=== PATIENT | male | born 1975 | race Two or more races ===

== ENCOUNTER 2017-10-12 00:25 | Inpatient (IN) | payer BC ==
[~2017-10-12] VITALS: Ht 188 cm; Wt 87.5 kg
[2017-10-12 00:21] VITALS: BP 125/80
[~2017-10-12 00:25] MED LIST: AMBIEN10 MG ORAL; IMODIUM2 MG ORAL; NORCO 5-325 TA1 EACH ORAL
[2017-10-12] MEDS ORDERED: HYDROmorphone 1mg/ml Carpuject IVP ONE (00:45)
[2017-10-12] MEDS ORDERED: cefTRIAXone 1 GM in NS 55 ML IVPB ONE (00:45)
[2017-10-12] MEDS ORDERED: DiphenhydrAMINE 50mg/ml Inj IVP ONE (00:45)
[2017-10-12] MEDS ORDERED: Vancomycin 1.5gm/D5W 250ml 250 ML IVPB ONE (00:45)
[2017-10-12] MEDS ORDERED: NS 1000ml 2,600 ML IVLG ONE (00:45)
--- NOTE | 2017-10-12 00:57 | Emergency Room Report ---
History of Present Illness General Chief Complaint: Skin Rash/Abscess Source: Patient Present Illness HPI Patient presents with complaints of redness and swelling to the left upper axilla He reports that 3 days ago he felt a noticed a small red area over the course of the 3 days the area has increased significantly pain had worsened 10 out of 10 pain over the past night he felt the area draining And after looking at the area there was pus and blood noted Patient denies any headache or visual changes he had a questionable fever yesterday Patient has not started any oral antibiotics as of yet Allergies: Coded Allergies: No Known Allergies (Unverified , 02/07/14) Patient History Past Medical History: see triage record Pertinent Family History: none Reviewed Nursing Documentation: PMH: Agreed, PSxH: Agreed Nursing Documentation-PMH Past Medical History: No Stated History Review of Systems All Other Systems: negative except mentioned in HPI Physical Exam Vital Signs Date Time Temp Pulse Resp B/P (MAP) Pulse Ox O2 Delivery O2 Flow Rate FiO2 10/12/17 00:14 98.8 84 15 125/80 100 Room Air Sp02 EP Interpretation: reviewed, normal General Appearance: mild distress - appears uncomfortable Head: normocephalic, atraumatic Eyes: bilateral eye PERRL, bilateral eye EOMI ENT: normal pharynx, no angioedema Neck: full range of motion, supple Respiratory: lungs clear Cardiovascular #1: regular rate, rhythm, no edema Gastrointestinal: non tender, soft Musculoskeletal: normal inspection Neurologic: alert, oriented x3, responsive, custom shoemaker III-XII nml as tested Skin: other - Area in the left axilla on the lower aspect, palpable fluctuant region with a central opening and drainage, erythema approximately 6 x 4 cm Lymphatic: no adenopathy Medical Decision Making Diagnostic Impression: Primary Impression: Abscess Additional Impression: Cellulitis ER Course Given the patient's history and presentation lack of any obvious ingrown hair or other source patient had imaging study also obtained there is some evidence of edema and soft tissue changes no obvious large abscess was identified Patient initiated on IV antibiotics and fluids Pain medication At this time patient will require admission Specialty consultation will be made and patient stable for continued care Labs Test 10/12/17 01:00 10/12/17 02:05 White Blood Count 9.5 K/UL (4.8-10.8) Red Blood Count 4.17 M/UL (4.70-6.10) Hemoglobin 13.6 G/DL (14.2-18.0) Hematocrit 39.2 % (42.0-52.0) Mean Corpuscular Volume 94 FL (80-99) Mean Corpuscular Hemoglobin 32.5 PG (27.0-31.0) Mean Corpuscular Hemoglobin Concent 34.6 G/DL (32.0-36.0) Red Cell Distribution Width 12.7 % (11.6-14.8) Platelet Count 222 K/UL (150-450) Mean Platelet Volume 8.4 FL (6.5-10.1) Neutrophils (%) (Auto) 64.0 % (45.0-75.0) Lymphocytes (%) (Auto) 21.6 % (20.0-45.0) Monocytes (%) (Auto) 10.1 % (1.0-10.0) Eosinophils (%) (Auto) 3.6 % (0.0-3.0) Basophils (%) (Auto) 0.8 % (0.0-2.0) Sodium Level 140 MMOL/L (136-145) Potassium Level 5.0 MMOL/L (3.5-5.1) Chloride Level 106 MMOL/L (98-107) Carbon Dioxide Level 27 MMOL/L (21-32) Anion Gap 7 mmol/L (5-15) Blood Urea Nitrogen 9 mg/dL (7-18) Creatinine 0.9 MG/DL (0.55-1.30) Estimat Glomerular Filtration Rate > 60 mL/min (>60) Glucose Level 126 MG/DL (74-106) Lactic Acid Level 2.10 mmol/L (0.66-2.22) 1.20 mmol/L (0.66-2.22) Calcium Level 8.7 MG/DL (8.5-10.1) Total Bilirubin 0.4 MG/DL (0.2-1.0) Aspartate Amino Transf (AST/SGOT) 90 U/L (15-37) Alanine Aminotransferase (ALT/SGPT) 45 U/L (12-78) Alkaline Phosphatase 91 U/L (46-116) Total Creatine Kinase 139 U/L (26-308) Creatine Kinase MB 1.6 NG/ML (0.0-3.6) Creatine Kinase MB Relative Index 1.1 Total Protein 7.3 G/DL (6.4-8.2) Albumin 3.2 G/DL (3.4-5.0) Globulin 4.1 g/dL Albumin/Globulin Ratio 0.8 (1.0-2.7) CT/MRI/US Diagnostic Results CT/MRI/US Diagnostic Results : Impression CT chest: No obvious PE, edema and inflammatory changes left upper chest, no obvious abscess Last Vital Signs Date Time Temp Pulse Resp B/P (MAP) Pulse Ox O2 Delivery O2 Flow Rate FiO2 10/12/17 00:21 98.8 15 125/80 100 Room Air 10/12/17 00:14 84 Status: improved Disposition: ADMITTED INPATIENT Condition: Serious MALKA GAMBINO D.O. Oct 12, 2017 00:57
[2017-10-12 01:18] LABS: BASOPHILS % (AUTO) 0.8 % (0.0-2.0); EOSINOPHILS % (AUTO) 3.6 % (0.0-3.0); LYMPHOCYTES % (AUTO) 21.6 % (20.0-45.0); MEAN CORPUSCULAR HEMOGLOBIN 32.5 PG (27.0-31.0); MEAN CORPUSCULAR HGB CONC 34.6 G/DL (32.0-36.0); MEAN CORPUSCULAR VOLUME 94 FL (80-99); MEAN PLATELET VOLUME 8.4 FL (6.5-10.1); MONOCYTES % (AUTO) 10.1 % (1.0-10.0); PLATELET COUNT 222 K/UL (150-450); RED BLOOD COUNT 4.17 M/UL (4.70-6.10); RED CELL DISTRIBUTION WIDTH 12.7 % (11.6-14.8); WHITE BLOOD COUNT 9.5 K/UL (4.8-10.8)
[2017-10-12 01:43] LABS: ANION GAP 7 mmol/L (5-15); CALCIUM 8.7 MG/DL (8.5-10.1); CARBON DIOXIDE 27 MMOL/L (21-32); CHLORIDE 106 MMOL/L (98-107); CREATININE 0.9 MG/DL (0.55-1.30); GLOMERULAR FILTRATION RATE > 60 mL/min (>60); SODIUM 140 MMOL/L (136-145)
[2017-10-12 01:58] LABS: ALANINE AMINOTRANSFERASE 45 U/L (12-78); ALBUMIN/GLOBULIN RATIO 0.8 (1.0-2.7); ASPARTATE AMINO TRANSFERASE 90 U/L (15-37); CKMB 1.6 NG/ML (0.0-3.6); TOTAL PROTEIN 7.3 G/DL (6.4-8.2)
[2017-10-12 02:00] LABS: REFLEX LACTIC ACID YES OR NO YES
[2017-10-12 02:02] VITALS: BP 114/93
[2017-10-12] MEDS ORDERED: HYDROmorphone 2 MG, DiphenhydrAMINE 25 MG in NS 55 ML IV ONE (02:45)
[2017-10-12] MEDS ORDERED: Ketorolac 30mg Inj IV ONE (03:45)
[2017-10-12] MEDS ORDERED: Bacitracin Oint UD TOPIC ONE (03:45)
[2017-10-12 04:07] VITALS: BP 125/80
[2017-10-12 04:30] VITALS: BP 124/74
[2017-10-12] MEDS ORDERED: OMEPRAZOLE40 M1 ORAL (05:32)
[2017-10-12] MEDS ORDERED: Morphine Sulfate 2mg/ml Inj IVP ONE ×2 (06:30→15:30)
[2017-10-12] MEDS ORDERED: Morphine Sulfate 2mg/ml Inj IVP PRN (07:00)
[2017-10-12] MEDS ORDERED: Nitroglycerin Subl 0.4mg tab SL PRN (07:00)
[2017-10-12] MEDS ORDERED: Miralax 17gm pkt ORAL PRN (07:00)
[2017-10-12] MEDS ORDERED: Albuterol/Ipratropium 3ml neb HHN PRN (07:00)
[2017-10-12 08:00] VITALS: BP 122/69
[2017-10-12] MEDS ORDERED: Heparin 5000 units/ml inj SUBQ SCH (09:00)
[2017-10-12] MEDS ORDERED: Cefepime HCl 2 GM in D5W 55 ML IV SCH (09:00)
--- NOTE | 2017-10-12 10:50 | Diagnostic Imaging Report ---
ndication: Chest pain Technique: IV administration nonionic contrast. Spiral acquisitions obtained from the lung bases to the lung apices. Multiplanar and 3-D reconstructions were generated. Total dose length product 1179 mGycm. CTDIvol(s) 12, 25, 30 mGy. Dose reduction achieved using automated exposure control Comparison: None Findings: There is some image degradation due to motion artifact. Pulmonary arteries are well opacified centrally but less well opacified peripherally; small distal emboli cannot be confidently excluded. No central pulmonary embolus demonstrated. No evidence of thoracic aortic aneurysm or dissection. No pulmonary arterial dilatation. Normal heart size. No right ventricular dilatation. The lungs demonstrate minimal posterior dependent atelectatic changes. The lungs are otherwise clear. No effusions. There is slight infiltration of the left chest wall subcutaneous fat as well as thickening of the skin. No fluid collections to suggest abscess are evident. There is mild asymmetric prominence to the left axillary nodes, which demonstrate preserved architecture No pericardial effusion. No mediastinal or hilar mass or adenopathy. Unremarkable thyroid. The bones are unremarkable. Included upper abdominal anatomy demonstrates mild hepatic enlargement. Impression: Somewhat limited exam. Grossly negative for acute pulmonary embolus or other acute intrathoracic pathology. Left chest wall skin thickening and subcutaneous edema, as described. Could indicate cellulitis or contusion. Correlate with clinical findings. No findings to suggest abscess Mildly prominent left axillary nodes, likely reactive Possible mild hepatomegaly The CT scanner at [facility] is accredited by the [employer] and the scans are performed using protocols designed to limit radiation exposure to as low as reasonably achievable to attain images of sufficient resolution adequate for diagnostic evaluation.
--- NOTE | 2017-10-12 10:50 | Consultation ---
History of Present Illness General Date patient seen: Oct 12, 2017 Chief Complaint: Skin Rash/Abscess Present Illness HPI 42 year old otherwise healthy male presented to ED complaining of worsening left axilla pain for 3-4 days. As per patient, he was in his normal state of health until 3-4 days ago when he first noted a small "pimple" on his left axilla. Initially did not think much of it but over the subsequent days began to enlarge and cause more discomfort. Yesterday he began to note 10/10 pain and came to ED for evaluated. Noted small lump enlarge to the size of a "golfball" prior to coming to the ED. He also noted some spontaneous drainage of pus and blood over the past few hours. since admission has began to feel better with pain medication and abx. denies fever or chills. no nausea or emesis. no similar events prior. In ED had CT scan which demonstrated superficial cellulitis and enlarged lymph nodes in the area. surgery called to evaluate. Allergies: Coded Allergies: No Known Allergies (Unverified , 02/07/14) Medication History Scheduled Omeprazole (Omeprazole), 40 MG ORAL PRN, (Reported) Patient History History Provided By: Patient Healthcare decision maker Resuscitation status Full Code Advanced Directive on File Past Medical/Surgical History Past Medical/Surgical History: (1) Abscess Review of Systems Constitutional: Denies: no symptoms, see HPI, chills, sweats, fever, malaise, weakness, other Eye: Denies: no symptoms, see HPI, eye pain, blurred vision, tearing, double vision, nose pain, nose congestion, acuity changes, discharge, other ENT: Denies: no symptoms, see HPI, ear pain, ear discharge, nose pain, nose congestion, throat pain, throat swelling, mouth pain, hearing loss, nasal discharge, other Respiratory: Denies: no symptoms, see HPI, cough, orthopnea, shortness of breath, stridor, wheezing, MOCTEZUMA, sputum, other Cardiovascular: Denies: no symptoms, see HPI, chest pain, edema, palpitations, syncope, PND, other Gastrointestinal: Denies: no symptoms, see HPI, abdominal pain, constipation, diarrhea, nausea, vomiting, melena, hematemesis, other Genitourinary: Denies: no symptoms, see HPI, discharge, dysuria, frequency, hematuria, pain, retention, incontinence, urgency, vag bleed/dc, other Musculoskeletal: Denies: no symptoms, see HPI, back pain, gout, joint pain, joint swelling, muscle pain, muscle stiffness, other Skin: Denies: no symptoms, see HPI, rash, change in color, change in hair/nails , dryness, lesions, other Psychiatric: Denies: no symptoms, see HPI, prior hx, anxiety, depressed feelings, emotional problems, SI, HI, hallucinations, other Neurological: Denies: no symptoms, see HPI, headache, numbness, paresthesia, seizure, tingling, tremors, focal weakness, syncope, dizziness, other Endocrine: Denies: no symptoms, see HPI, excessive sweating, flushing, intolerance to temperature, increased thirst, increased urine, unexplained weight loss, other Hematologic/Lymphatic: Denies: no symptoms, see HPI, anemia, blood clots, easy bleeding, easy bruising, swollen glands, diathesis, other All Other Systems: negative except mentioned in HPI Physical Exam General Appearance: WD/WN, no apparent distress, alert Lines, tubes and drains: peripheral HEENT: PERRL Neck: normal inspection Respiratory/Chest: normal breath sounds, no respiratory distress, no accessory muscle use Cardiovascular/Chest: normal peripheral pulses, normal rate, regular rhythm Abdomen: normal bowel sounds, non tender, soft, no organomegaly, no mass Skin Exam: normal pigmentation, warm/dry Neurologic: medical charge entry specialist II-XII grossly normal, alert, oriented x 3 Physical Exam Narrative Left axilla with 8cm x 6cm area of cellulitis with induration and central fluctuance. 2mm open area with spontaneous drainage of pus at the central area of fluctuance. very tender on palpation cannot palpate lymph nodes Last 24 Hour Vital Signs Date Time Temp Pulse Resp B/P (MAP) Pulse Ox O2 Delivery O2 Flow Rate FiO2 10/12/17 08:00 97.0 81 18 122/69 98 Room Air 10/12/17 04:35 98.8 79 12 125/80 100 Room Air 10/12/17 04:30 97.3 73 20 124/74 99 Room Air 10/12/17 04:07 79 12 125/80 100 Room Air 10/12/17 03:34 98.8 10/12/17 02:08 98.8 10/12/17 02:02 80 17 114/93 99 Room Air 10/12/17 00:21 98.8 15 125/80 100 Room Air 10/12/17 00:14 98.8 84 15 125/80 100 Room Air Laboratory Tests Test 10/12/17 01:00 10/12/17 02:05 White Blood Count 9.5 K/UL (4.8-10.8) Red Blood Count 4.17 M/UL (4.70-6.10) L Hemoglobin 13.6 G/DL (14.2-18.0) L Hematocrit 39.2 % (42.0-52.0) L Mean Corpuscular Volume 94 FL (80-99) Mean Corpuscular Hemoglobin 32.5 PG (27.0-31.0) H Mean Corpuscular Hemoglobin Concent 34.6 G/DL (32.0-36.0) Red Cell Distribution Width 12.7 % (11.6-14.8) Platelet Count 222 K/UL (150-450) Mean Platelet Volume 8.4 FL (6.5-10.1) Neutrophils (%) (Auto) 64.0 % (45.0-75.0) Lymphocytes (%) (Auto) 21.6 % (20.0-45.0) Monocytes (%) (Auto) 10.1 % (1.0-10.0) H Eosinophils (%) (Auto) 3.6 % (0.0-3.0) H Basophils (%) (Auto) 0.8 % (0.0-2.0) Sodium Level 140 MMOL/L (136-145) Potassium Level 5.0 MMOL/L (3.5-5.1) Chloride Level 106 MMOL/L (98-107) Carbon Dioxide Level 27 MMOL/L (21-32) Anion Gap 7 mmol/L (5-15) Blood Urea Nitrogen 9 mg/dL (7-18) Creatinine 0.9 MG/DL (0.55-1.30) Estimat Glomerular Filtration Rate > 60 mL/min (>60) Glucose Level 126 MG/DL (74-106) H Lactic Acid Level 2.10 mmol/L (0.66-2.22) 1.20 mmol/L (0.66-2.22) Calcium Level 8.7 MG/DL (8.5-10.1) Total Bilirubin 0.4 MG/DL (0.2-1.0) Aspartate Amino Transf (AST/SGOT) 90 U/L (15-37) H Alanine Aminotransferase (ALT/SGPT) 45 U/L (12-78) Alkaline Phosphatase 91 U/L (46-116) Total Creatine Kinase 139 U/L (26-308) Creatine Kinase MB 1.6 NG/ML (0.0-3.6) Creatine Kinase MB Relative Index 1.1 Total Protein 7.3 G/DL (6.4-8.2) Albumin 3.2 G/DL (3.4-5.0) L Globulin 4.1 g/dL Albumin/Globulin Ratio 0.8 (1.0-2.7) L Height (Feet): 6 Height (Inches): 2.00 Weight (Pounds): 193 Medications Current Medications Medications (Trade) Dose Ordered Sig/[place] Route PRN Reason Start Time Stop Time Status Last Admin Dose Admin Acetaminophen (Tylenol) 650 mg Q4H PRN ORAL fever 10/12/17 07:00 11/11/17 06:59 Albuterol/ Ipratropium (Albuterol/ Ipratropium) 3 ml Q4H PRN HHN Shortness of Breath 10/12/17 07:00 10/17/17 06:59 Cefepime HCl 2 gm/ Dextrose 55 ml @ 110 mls/hr EVERY 12 HOURS IV 10/12/17 09:00 10/19/17 08:59 10/12/17 10:04 Dextrose (Dextrose 50%) STAT PRN IV Hypoglycemia 10/12/17 07:00 11/11/17 06:59 Heparin Sodium (Porcine) (Heparin 5000 units/ml) 5,000 units EVERY 12 HOURS SUBQ 10/12/17 09:00 11/11/17 08:59 10/12/17 10:04 Morphine Sulfate (Morphine Sulfate) 2 mg Q4H PRN IVP Moderate Pain (Pain Scale 4-6) 10/12/17 07:00 10/19/17 06:59 Nitroglycerin (Ntg) 0.4 mg Q5M PRN SL Prn Chest Pain 10/12/17 07:00 11/11/17 06:59 Ondansetron HCl (Zofran) 4 mg Q6H PRN IVP Nausea & Vomiting 10/12/17 07:00 11/11/17 06:59 Polyethylene Glycol (Miralax) 17 gm DAILYPRN PRN ORAL Constipation 10/12/17 07:00 11/11/17 06:59 Temazepam (Restoril) 15 mg HSPRN PRN ORAL Insomnia 10/12/17 07:00 10/19/17 06:59 Vancomycin HCl (Vanco rx to dose) 1 ea DAILY PRN MISC per RX Protocol 10/12/17 07:30 11/11/17 07:29 Vancomycin HCl/ Dextrose 250 ml @ 125 mls/hr Q12HR@0200,1400 IVPB 10/12/17 14:00 10/17/17 13:59 Assessment/Plan Problem List: (1) Abscess Assessment & Plan: 42M moderate sized left axillary abscess. has recently began to have spontaneous drainage. still with significant induration and tenderness. recommend Incision and drainage with washout at bedside. will follow thank you for this consultation. ICD Codes: L02.91 - Cutaneous abscess, unspecified SNOMED: [id number] Status: stable Tre Jones Oct 12, 2017 10:50
--- NOTE | 2017-10-12 11:24 | Consultation ---
History of Present Illness General Date patient seen: Oct 12, 2017 - 11:23a Chief Complaint: Skin Rash/Abscess Reason for Consultation: L axilla abscess/cellulitis Present Illness HPI 42 y/o M with no prior medical hx presents to ED on 10/12 with c/o redness and swelling of L upper axilla. 3 days [employer] noticed a small red area/"pimple' and within 3 days has significantly enlarged(now "gulf ball size"), increasing pain (10/10) and noticed some pus and blood coming out. Also had subjective fevers. Denies n/v, prior similar events, cough, SOB. On ED had CT scan which showed superficial cellultis and enlarged lymph nodes. Allergies: Coded Allergies: No Known Allergies (Unverified , 02/07/14) Medication History Scheduled Omeprazole (Omeprazole), 40 MG ORAL PRN, (Reported) Patient History Healthcare decision maker Resuscitation status Full Code Advanced Directive on File Patient History Narrative Pmhx: negative SH: non contributory Fhx: non contributory Review of Systems All Other Systems: negative except mentioned in HPI Physical Exam Physical Exam Narrative General Appearance: sitting in bed comfortably, not in acute distress HEENT: normocephalic, atraumatic, bilateral eye PERRL, bilateral eye EOMI, normal pharynx Neck: full range of motion, supple Respiratory: lungs clear Cardiovascular regular rate, rhythm, no edema Gastrointestinal: non tender, soft Musculoskeletal: normal inspection Neurologic: alert, oriented x3, responsive, program strategist III-XII nml as tested Skin: other - Area in the left axilla s/p I+D with packing and surrrounding induration ; minimal erythema Last 24 Hour Vital Signs Date Time Temp Pulse Resp B/P (MAP) Pulse Ox O2 Delivery O2 Flow Rate FiO2 10/12/17 08:00 97.0 81 18 122/69 98 Room Air 10/12/17 04:35 98.8 79 12 125/80 100 Room Air 10/12/17 04:30 97.3 73 20 124/74 99 Room Air 10/12/17 04:07 79 12 125/80 100 Room Air 10/12/17 03:34 98.8 10/12/17 02:08 98.8 10/12/17 02:02 80 17 114/93 99 Room Air 10/12/17 00:21 98.8 15 125/80 100 Room Air 10/12/17 00:14 98.8 84 15 125/80 100 Room Air Laboratory Tests Test 10/12/17 01:00 10/12/17 02:05 White Blood Count 9.5 K/UL (4.8-10.8) Red Blood Count 4.17 M/UL (4.70-6.10) L Hemoglobin 13.6 G/DL (14.2-18.0) L Hematocrit 39.2 % (42.0-52.0) L Mean Corpuscular Volume 94 FL (80-99) Mean Corpuscular Hemoglobin 32.5 PG (27.0-31.0) H Mean Corpuscular Hemoglobin Concent 34.6 G/DL (32.0-36.0) Red Cell Distribution Width 12.7 % (11.6-14.8) Platelet Count 222 K/UL (150-450) Mean Platelet Volume 8.4 FL (6.5-10.1) Neutrophils (%) (Auto) 64.0 % (45.0-75.0) Lymphocytes (%) (Auto) 21.6 % (20.0-45.0) Monocytes (%) (Auto) 10.1 % (1.0-10.0) H Eosinophils (%) (Auto) 3.6 % (0.0-3.0) H Basophils (%) (Auto) 0.8 % (0.0-2.0) Sodium Level 140 MMOL/L (136-145) Potassium Level 5.0 MMOL/L (3.5-5.1) Chloride Level 106 MMOL/L (98-107) Carbon Dioxide Level 27 MMOL/L (21-32) Anion Gap 7 mmol/L (5-15) Blood Urea Nitrogen 9 mg/dL (7-18) Creatinine 0.9 MG/DL (0.55-1.30) Estimat Glomerular Filtration Rate > 60 mL/min (>60) Glucose Level 126 MG/DL (74-106) H Lactic Acid Level 2.10 mmol/L (0.66-2.22) 1.20 mmol/L (0.66-2.22) Calcium Level 8.7 MG/DL (8.5-10.1) Total Bilirubin 0.4 MG/DL (0.2-1.0) Aspartate Amino Transf (AST/SGOT) 90 U/L (15-37) H Alanine Aminotransferase (ALT/SGPT) 45 U/L (12-78) Alkaline Phosphatase 91 U/L (46-116) Total Creatine Kinase 139 U/L (26-308) Creatine Kinase MB 1.6 NG/ML (0.0-3.6) Creatine Kinase MB Relative Index 1.1 Total Protein 7.3 G/DL (6.4-8.2) Albumin 3.2 G/DL (3.4-5.0) L Globulin 4.1 g/dL Albumin/Globulin Ratio 0.8 (1.0-2.7) L Height (Feet): 6 Height (Inches): 2.00 Weight (Pounds): 193 Medications Current Medications Medications (Trade) Dose Ordered Sig/[place] Route PRN Reason Start Time Stop Time Status Last Admin Dose Admin Acetaminophen (Tylenol) 650 mg Q4H PRN ORAL fever 10/12/17 07:00 11/11/17 06:59 Albuterol/ Ipratropium (Albuterol/ Ipratropium) 3 ml Q4H PRN HHN Shortness of Breath 10/12/17 07:00 10/17/17 06:59 Cefepime HCl 2 gm/ Dextrose 55 ml @ 110 mls/hr EVERY 12 HOURS IV 10/12/17 09:00 10/19/17 08:59 10/12/17 10:04 Dextrose (Dextrose 50%) STAT PRN IV Hypoglycemia 10/12/17 07:00 11/11/17 06:59 Heparin Sodium (Porcine) (Heparin 5000 units/ml) 5,000 units EVERY 12 HOURS SUBQ 10/12/17 09:00 11/11/17 08:59 10/12/17 10:04 Lidocaine/ Epinephrine (Xylocaine 1%/ Epi MPF 30ml) 30 ml ONCE ONCE INJ 10/12/17 12:00 10/12/17 12:01 Morphine Sulfate (Morphine Sulfate) 2 mg Q4H PRN IVP Moderate Pain (Pain Scale 4-6) 10/12/17 07:00 10/19/17 06:59 Nitroglycerin (Ntg) 0.4 mg Q5M PRN SL Prn Chest Pain 10/12/17 07:00 11/11/17 06:59 Ondansetron HCl (Zofran) 4 mg Q6H PRN IVP Nausea & Vomiting 10/12/17 07:00 11/11/17 06:59 Polyethylene Glycol (Miralax) 17 gm DAILYPRN PRN ORAL Constipation 10/12/17 07:00 11/11/17 06:59 Temazepam (Restoril) 15 mg HSPRN PRN ORAL Insomnia 10/12/17 07:00 10/19/17 06:59 Vancomycin HCl (Vanco rx to dose) 1 ea DAILY PRN MISC per RX Protocol 10/12/17 07:30 11/11/17 07:29 Vancomycin HCl/ Dextrose 250 ml @ 125 mls/hr Q12HR@0200,1400 IVPB 10/12/17 14:00 10/17/17 13:59 Assessment/Plan Assessment/Plan Abx: IV Vancomycin 10/12- IV Cefepime 10/12- Ceftriaxone x1 10/12 Assesment: L axilla abscess- r/o MRSA -s/p bedside I+D 10/12; surgical findings: small 2mm opening from spontaneous drainage noted and to be extended for I&D. wound cavity evacuated and inspected. noted to be 2cm deep and 3cm in diameter. cavity irrigated with sterile normal saline until clean of all debris and pus. ;wound cx sent Bcx p CT Thorax: Somewhat limited exam. Grossly negative for acute pulmonary embolus or other acute intrathoracic pathology. Left chest wall skin thickening and subcutaneous edema, as described. Could indicate cellulitis or contusion. Correlate with clinical findings. No findings to suggest abscess Mildly prominent left axillary nodes, likely reactive Possible mild hepatomegaly afebrile, no leukocytosis Plan: -On IV Vancomycin; ok to discharge home on PO keflex 500mg qid, Bactrim DS 2 tab bid for 7 days -D/c Cefepime -f/u wound cx from debridement -f/u cx -Monitor CBC/BMP, temperatures Thank you for this consultation. Will continue to follow along with you. Discussed with RN, Dr Stewart and Solange Pacheco M.D. Oct 12, 2017 11:24
[2017-10-12 12:00] VITALS: BP 121/77
[2017-10-12] MEDS ORDERED: Lidocaine 1% 10mg/ml/Epi 0.005mg/ml 30ml vial INJ ONE (12:00)
--- NOTE | 2017-10-12 12:08 | Operative Note - PDOC ---
Operative Note Operative Note Date of Operation/Procedure: Oct 12, 2017 Pre-op Diagnosis: Left axilla abscess Procedure: Incision and Drainage of left axilla abscess Post-op Diagnosis: same as pre-op Surgeon: Karen WOODRUFF Anesthesia: local Specimen: yes - cultures sent for micro Complications: none Condition: stable Estimated Blood Loss: minimal Drains: none Implant(s) used?: No Indications for Procedure 42 year old male with worsening left axilla abscess. Began to spontaneously drain recently but noted fibrinous debris in small opening with significant surrounding cellulitis. Incision and Drainage indicated. Risks, benefits, and alternatives discussed with patient in detail. Patient consented to procedure which was performed at bedside today. Description of Procedure Patient was made comfortable at bedside. Time out was taken identifying patient , procedure, and equipment. left axilla was prepped and draped in standard surgical fashion. 1%lido with epi was infiltrated in to proposed skin incision. small 2mm opening from spontaneous drainage noted and to be extended for I&D. after appropriate local anesthetic relief noted a fresh #11 scalpel was used to make an incision to extent the small opening. wound cavity evacuated and inspected. noted to be 2cm deep and 3cm in diameter. cavity irrigated with sterile normal saline until clean of all debris and pus. hemostasis noted. packing and dressings applied. patient tolerated well. Tre Jones Oct 12, 2017 12:07
[2017-10-12] MEDS ORDERED: Vancomycin 1.5 GM/D5W 250ML IVPB SCH (14:00)
--- NOTE | 2017-10-12 15:17 | History and Physical ---
History of Present Illness General Date patient seen: Oct 12, 2017 Reason for Hospitalization: Skin Rash/Abscess Present Illness HPI 42 year old male presented to ER with complaints of redness and swelling to the left upper axilla for 3 days. He has10 out of 10 pain over the past night he felt the area draining, there was pus and blood noted. Pt has been seen by surgeon and debrided already. Allergies: Coded Allergies: No Known Allergies (Unverified , 02/07/14) Medication History Scheduled Omeprazole (Omeprazole), 40 MG ORAL PRN, (Reported) Patient History Healthcare decision maker Resuscitation status Full Code Advanced Directive on File Review of Systems All Other Systems: negative except mentioned in HPI Physical Exam General Appearance: WD/WN, alert Lines, tubes and drains: peripheral, central line HEENT: anicteric Neck: normal alignment, abnormal alignment Respiratory/Chest: chest wall non-tender, respiratory distress Breasts: no masses Cardiovascular/Chest: regular rhythm Abdomen: normal bowel sounds, no organomegaly Genitourinary/Rectal: normal rectal exam Extremities: non-tender Skin Exam: other - left axillary dressing Last 24 Hour Vital Signs Date Time Temp Pulse Resp B/P (MAP) Pulse Ox O2 Delivery O2 Flow Rate FiO2 10/12/17 14:26 98.1 10/12/17 12:00 98.1 88 20 121/77 95 Room Air 10/12/17 08:00 97.0 81 18 122/69 98 Room Air 10/12/17 04:35 98.8 79 12 125/80 100 Room Air 10/12/17 04:30 97.3 73 20 124/74 99 Room Air 10/12/17 04:07 79 12 125/80 100 Room Air 10/12/17 03:34 98.8 10/12/17 02:08 98.8 10/12/17 02:02 80 17 114/93 99 Room Air 10/12/17 00:21 98.8 15 125/80 100 Room Air 10/12/17 00:14 98.8 84 15 125/80 100 Room Air Intake and Output 10/12/17 10/13/17 19:00 07:00 Intake Total 55 ml Balance 55 ml IV Total 55 ml Laboratory Tests Test 10/12/17 01:00 10/12/17 02:05 White Blood Count 9.5 K/UL (4.8-10.8) Red Blood Count 4.17 M/UL (4.70-6.10) L Hemoglobin 13.6 G/DL (14.2-18.0) L Hematocrit 39.2 % (42.0-52.0) L Mean Corpuscular Volume 94 FL (80-99) Mean Corpuscular Hemoglobin 32.5 PG (27.0-31.0) H Mean Corpuscular Hemoglobin Concent 34.6 G/DL (32.0-36.0) Red Cell Distribution Width 12.7 % (11.6-14.8) Platelet Count 222 K/UL (150-450) Mean Platelet Volume 8.4 FL (6.5-10.1) Neutrophils (%) (Auto) 64.0 % (45.0-75.0) Lymphocytes (%) (Auto) 21.6 % (20.0-45.0) Monocytes (%) (Auto) 10.1 % (1.0-10.0) H Eosinophils (%) (Auto) 3.6 % (0.0-3.0) H Basophils (%) (Auto) 0.8 % (0.0-2.0) Sodium Level 140 MMOL/L (136-145) Potassium Level 5.0 MMOL/L (3.5-5.1) Chloride Level 106 MMOL/L (98-107) Carbon Dioxide Level 27 MMOL/L (21-32) Anion Gap 7 mmol/L (5-15) Blood Urea Nitrogen 9 mg/dL (7-18) Creatinine 0.9 MG/DL (0.55-1.30) Estimat Glomerular Filtration Rate > 60 mL/min (>60) Glucose Level 126 MG/DL (74-106) H Lactic Acid Level 2.10 mmol/L (0.66-2.22) 1.20 mmol/L (0.66-2.22) Calcium Level 8.7 MG/DL (8.5-10.1) Total Bilirubin 0.4 MG/DL (0.2-1.0) Aspartate Amino Transf (AST/SGOT) 90 U/L (15-37) H Alanine Aminotransferase (ALT/SGPT) 45 U/L (12-78) Alkaline Phosphatase 91 U/L (46-116) Total Creatine Kinase 139 U/L (26-308) Creatine Kinase MB 1.6 NG/ML (0.0-3.6) Creatine Kinase MB Relative Index 1.1 Total Protein 7.3 G/DL (6.4-8.2) Albumin 3.2 G/DL (3.4-5.0) L Globulin 4.1 g/dL Albumin/Globulin Ratio 0.8 (1.0-2.7) L Height (Feet): 6 Height (Inches): 2.00 Weight (Pounds): 193 Medications Current Medications Medications (Trade) Dose Ordered Sig/[place] Route PRN Reason Start Time Stop Time Status Last Admin Dose Admin Acetaminophen (Tylenol) 650 mg Q4H PRN ORAL fever 10/12/17 07:00 11/11/17 06:59 Albuterol/ Ipratropium (Albuterol/ Ipratropium) 3 ml Q4H PRN HHN Shortness of Breath 10/12/17 07:00 10/17/17 06:59 Dextrose (Dextrose 50%) STAT PRN IV Hypoglycemia 10/12/17 07:00 11/11/17 06:59 Heparin Sodium (Porcine) (Heparin 5000 units/ml) 5,000 units EVERY 12 HOURS SUBQ 10/12/17 09:00 11/11/17 08:59 10/12/17 10:04 Morphine Sulfate (Morphine Sulfate) 2 mg Q4H PRN IVP Moderate Pain (Pain Scale 4-6) 10/12/17 07:00 10/19/17 06:59 10/12/17 13:56 Nitroglycerin (Ntg) 0.4 mg Q5M PRN SL Prn Chest Pain 10/12/17 07:00 11/11/17 06:59 Ondansetron HCl (Zofran) 4 mg Q6H PRN IVP Nausea & Vomiting 10/12/17 07:00 11/11/17 06:59 Polyethylene Glycol (Miralax) 17 gm DAILYPRN PRN ORAL Constipation 10/12/17 07:00 11/11/17 06:59 Temazepam (Restoril) 15 mg HSPRN PRN ORAL Insomnia 10/12/17 07:00 10/19/17 06:59 Vancomycin HCl (Vanco rx to dose) 1 ea DAILY PRN MISC per RX Protocol 10/12/17 07:30 11/11/17 07:29 Vancomycin HCl/ Dextrose 250 ml @ 125 mls/hr Q12HR@0200,1400 IVPB 10/12/17 14:00 10/17/17 13:59 10/12/17 13:47 Assessment/Plan Problem List: (1) Abscess ICD Codes: L02.91 - Cutaneous abscess, unspecified SNOMED: 307537775 (2) Cellulitis ICD Codes: L03.90 - Cellulitis, unspecified SNOMED: 819227568 Assessment/Plan IV abx check cultures wound care d/w ID and surgeonSMILEY SALAS Oct 12, 2017 15:17
[2017-10-12] MEDS ORDERED: Morphine Sulfate 4mg/ml Inj IVP PRN (16:00)
--- NOTE | 2017-10-12 16:56 | General Progress Note ---
Progress Note Progress Note Surgery: patient seen and examined. wound checked and dressings changed. packing, dressings, and wound care instructions reviewed at bedside. plan for d/c today. follow up with me in 1 week Tre Jones Oct 12, 2017 16:56
[2017-10-12] MEDS ORDERED: BENADRYL25 MG ORAL (18:13)
[2017-10-12] MEDS ORDERED: COLACE100 MG ORAL (18:13)
[2017-10-12] MEDS ORDERED: CEPHALEXIN500 MG ORAL (18:14)
[2017-10-12] MEDS ORDERED: NORCO 5-325 TA1 EAC1 ORAL (18:14)
[2017-10-12] MEDS ORDERED: BACTRIM-DS1 EA ORAL (18:14)
[2017-10-12] MEDS ORDERED: NS 55ml IV ONE (19:32)
[2017-10-12] MEDS ORDERED: Tubing IV Secondary IV ONE (21:09)
[2017-10-12] MEDS ORDERED: NS 275ml ONE (21:09)
[2017-10-13] MEDS ORDERED: Vancomycin 1 GM in D5W 275 ML IV SCH (00:30)
--- NOTE | 2017-10-14 03:30 | Discharge Summary 2 SIG ---
DATE OF ADMISSION: 10/12/2017 DATE OF DISCHARGE: 10/12/2017 REASON FOR ADMISSION: 42 years old otherwise healthy male, presented to the emergency department with worsening left axilla pain for the last three to four days. First, he noted a small pimple on the left axilla, which gradually enlarged and started to cause more discomfort. Pain increased, and he came to the emergency department for evaluation. He noted spontaneous drainage of pus and blood over the past few hours. He denied fever or chills. No nausea. No emesis. No similar episodes in the past. CT scan demonstrated superficial cellulitis and enlarged lymph node. Surgery evaluation was requested. The patient was admitted with abscess of the left axilla, possible cellulitis. HOSPITAL COURSE: The patient admitted. A Surgery consult was requested urgently. The patient subsequently undergone bedside incision and drainage of left axilla abscess. Infectious Disease Doctor seen and evaluated the patient. The patient was on the IV antibiotic while in the hospital. Pain management was provided. Venous duplex bilateral lower extremities was negative. Wound care provided. Surgeon seen the patient after the procedure, later. Wound was checked , dressing changed and wound care instructions were taught to the patient and review at the bedside by surgeon. The patient verbalized understanding. The patient was stable for discharge and follow up with the surgeon in one week. Prescription for oral antibiotics as per Infectious Diseases recommendation provided. Due to rapid and unexpected improvement in patient condition, the patient was discharged in one day. FINAL DIAGNOSES: : 1. Left axilla abscess. 2. Status post bedside incision and drainage of left axilla abscess. 3. Possible cellulitis of the left chest wall. DISCHARGE MEDICATIONS: See medication reconciliation list. DISCHARGE INSTRUCTIONS: The patient was discharged home. Follow up with the surgeon in one week. Cam Stewart M.D. I have been assigned to dictate discharge summary on this account and I was not involved in the patient's management. Georgina BarkleyMaynor ron.PRamo DR: VETO JOB#: [id number] CC: FLAVIA
--- NOTE | 2017-10-15 23:09 | Diagnostic Imaging Report ---
APPROVED REPORT CPT Code: 18877 Present Symptoms Comments: R/O DVT BILATERAL: Imaging reveals a patent deep venous system bilaterally. There is no evidence of thrombus within the femoral, popliteal or tibial segments. The greater saphenous veins are also within normal limits. Doppler indicates normal spontaneous flow within these segments.
== END 2017-10-12 21:10 | disposition home or self-care (01) | DRG 603 ==
LOC: EDBD 00:25 → EMR 01:16 → EDBEDREQ 01:30 → ENRESERV 01:31 → 4E 01:32 → EDBEDREQ 04:01 → 4E 06:11
PROC: 0X950ZZ Drainage of Left Axilla, Open Approach (ICD-10-PCS; principal; 2017-10-12)
DX: L02.412 Cutaneous abscess of left axilla (principal)
CPT/HCPCS: 36415; 71275; 80053; 82550; 82553; 83605; 85025; 87040; 93970; 99285; J2405